=== PATIENT | male | born 1975 | race Two or more races ===

== ENCOUNTER 2024-04-14 07:00 | Outpatient (CLI) | payer OTHER ==
[2024-04-14 09:08] LABS: URINE APPEARANCE Clear; URINE BILIRRUBIN Negative (NEGATIVE); URINE BLOOD Negative; URINE COLOR Yellow; URINE GLUCOSE Negative (NEGATIVE); URINE KETONE Negative (NEGATIVE); URINE LEUKOCYTE Negative; URINE NITRATE Negative; URINE PROTEIN Negative (NEGATIVE); URINE UROBILINOGEN 0.2 E.U./dl
[2024-04-14 09:12] LABS: URINE WBC 2.2 uL (0.0-23.2)
[2024-04-14 09:13] LABS: HEMATOCRIT 43.2 % (39.0-48.0); HEMOGLOBIN 14.7 g/dL (13-16.00); MEAN CELL VOLUME 82.9 fL (80.0-100.00); MEAN CORPUSCULAR HEMOGLOBIN 28.3 pg (27.00-32.0); MEAN CORPUSCULAR HGB CONC 34.1 g/dl (32.0-36.0); PLATELET COUNT 211 K/uL (150-450); RED BLOOD COUNT 5.21 M/uL (4.00-6.00); RED CELL DISTRIBUTION WIDTH 12.9 % (11.5-14.5)
[2024-04-14 09:24] LABS: URINE BACTERIA 3.7 uL (0.0-1933); URINE EPITHELIAL CELLS 1.3 uL (0.0-38.8); URINE RBC 0.4 uL (0.0-20.8)
[2024-04-14 09:47] LABS: INR 1.01; PARTIAL THROMBOPLASTIN TIME 29.6 SECONDS (22.0-34.0)
[2024-04-14 10:06] LABS: BILIRUBIN TOTAL 0.59 mg/dL (0.3-1.2); CALCIUM 9.3 mg/dL (8.5-10.1); CREATININE SERUM 0.81 mg/dL (0.70-1.30); GFR 100.87; GLOBULINA 3.4 G/DL (2.4-3.5); POTASSIUM 4.26 mEq/L (3.5-5.1); TOTAL PROTEIN 7.4 gm/dL (6.4-8.2)
== END 2024-04-14 07:05 | disposition home or self-care (01) ==
LOC: RAD 07:00 → ADM 07:15 → CIR.AMB 04-21 07:00 → EDSTATUS 04-21 07:15
PROVIDERS: ATTEND Surgery
DX: K40.30 Unilateral inguinal hernia, with obstruction, without gangrene, not specified as recurrent (principal)

== ENCOUNTER 2024-06-30 07:37 | Day surgery (SDC) | payer OTHER ==
[2024-06-24 08:50] VITALS: BP 124/83
[2024-06-24 08:51] LABS: HEMATOCRIT 44.2 % (39.0-48.0); HEMOGLOBIN 15.3 g/dL (13-16.00); MEAN CELL VOLUME 82.8 fL (80.0-100.00); MEAN CORPUSCULAR HEMOGLOBIN 28.6 pg (27.00-32.0); MEAN CORPUSCULAR HGB CONC 34.6 g/dl (32.0-36.0); PLATELET COUNT 213 K/uL (150-450); RED BLOOD COUNT 5.34 M/uL (4.00-6.00); RED CELL DISTRIBUTION WIDTH 12.5 % (11.5-14.5)
[2024-06-24 09:19] LABS: INR 1.03; PARTIAL THROMBOPLASTIN TIME 29.9 SECONDS (22.0-34.0); PROTHROMBIN TIME 11.2 SECONDS (9.0-11.5)
[2024-06-24 09:19] LABS: PH,URINE 6.5 (5.0-8.0); URINE APPEARANCE Clear; URINE BILIRRUBIN Negative (NEGATIVE); URINE BLOOD Negative; URINE COLOR Yellow; URINE GLUCOSE Negative (NEGATIVE); URINE KETONE Negative (NEGATIVE); URINE LEUKOCYTE Negative; URINE NITRATE Negative; URINE PROTEIN Negative (NEGATIVE); URINE UROBILINOGEN 0.2 E.U./dl
[2024-06-24 09:23] LABS: URINE BACTERIA 6.2 uL (0.0-1933)
[2024-06-24 09:26] LABS: URINE EPITHELIAL CELLS 0.4 uL (0.0-38.8); URINE RBC 0.6 uL (0.0-20.8); URINE WBC 1.2 uL (0.0-23.2)
[2024-06-24 10:05] LABS: ALBUMIN 4.1 gm/dL (3.4-5.0); BILIRUBIN TOTAL 0.97 mg/dL (0.3-1.2); CALCIUM 9.5 mg/dL (8.5-10.1); CREATININE SERUM 0.82 mg/dL (0.70-1.30); GFR 99.45; GLOBULINA 3.4 G/DL (2.4-3.5); POTASSIUM 3.94 mEq/L (3.5-5.1); TOTAL PROTEIN 7.5 gm/dL (6.4-8.2)
[~2024-06-30] VITALS: Ht 172.7 cm; Wt 59.0 kg
[2024-06-30] MEDS ORDERED: CIPROFLOXACIN IN 5 % DEXTROSE 400 MG/200 ML PIGGYBAG IV ONE (11:30)
== END 2024-06-30 17:20 | disposition home or self-care (01) ==
LOC: CIR.AMB 07:37
PROVIDERS: ATTEND Surgery
DX: K40.31 Unilateral inguinal hernia, with obstruction, without gangrene, recurrent (principal)